=== PATIENT | male | born 1970 | race Two or more races ===

== ENCOUNTER 2020-04-15 20:55 | Emergency (ER) | payer SELFPAY ==
[~2020-04-15] VITALS: Ht 175.3 cm; Wt 90.7 kg
[2020-04-15 21:06] VITALS: BP 123/65
--- NOTE | 2020-04-15 21:54 | Diagnostic Imaging Report ---
EXAM: XR Chest, 1 View CLINICAL HISTORY: ALOC TECHNIQUE: Frontal view of the chest. COMPARISON: No relevant prior studies available. FINDINGS: Lungs: Mild left basilar atelectasis. Mildly elevated left hemidiaphragm. No consolidation or interstitial edema. Pleural space: No pleural effusion. No pneumothorax. Heart: Unremarkable. No cardiomegaly. Bones/joints: Unremarkable. IMPRESSION: No acute findings in the chest.
--- NOTE | 2020-04-15 21:57 | Emergency Room Report ---
History of Present Illness General Chief Complaint: Alcohol Intoxication Source: Patient, EMS (Michael Maldonado MD) Present Illness HPI Patient brought by EMS. Friends were drinking with him and he told him that he was not feeling well. Paramedics arrived and he was ambulatory and speaking with the locks tender but then he stopped speaking to paramedics. Blood glucose was normal. There was no observed seizure activity. Initially patient not answering questions. Patient has a history of seizures. He takes Keppra 1000 mg twice a day. He denies having any seizures today. (Michael Maldonado MD) Allergies: Coded Allergies: UNABLE TO ASSESS (Unverified , 04/15/20) COVID-19 Screening Contact w/high risk pt: No Experienced COVID-19 symptoms?: No COVID-19 Testing performed CARTRIDGE LOADER: No (Michael Maldonado MD) Patient History Limited by: medical condition Past Medical History: see triage record, other - Umbilical hernia Social History: Reports: alcohol use; Denies: smoking Social History Narrative Was with friends Reviewed Nursing Documentation: PMH: Agreed; PSxH: Agreed (Michael Maldonado MD) Nursing Documentation-PMH Past Medical History: No History, Except For Hx Seizures: Yes - seizures (Michael Maldonado MD) Review of Systems All Other Systems: limited (Michael Maldonado MD) Physical Exam Vital Signs Date Time Temp Pulse Resp B/P (MAP) Pulse Ox O2 Delivery O2 Flow Rate FiO2 04/15/20 20:48 97.9 110 18 135/70 (91) 98 Room Air Sp02 EP Interpretation: reviewed, normal General Appearance: no apparent distress, lethargic Head: normocephalic, atraumatic Eyes: bilateral eye PERRL, bilateral eye EOMI, bilateral eye Scleral Injection ENT: moist mucus membranes - Lingual trauma Neck: full range of motion, supple, no bony tend Respiratory: chest non-tender, lungs clear, normal breath sounds Cardiovascular #1: regular rate, rhythm, edema - Trace bilaterally Cardiovascular #2: 2+ radial (L) Gastrointestinal: non tender, hernia - Umbilical, overweight Genitourinary: no CVA tenderness Musculoskeletal: back normal, normal range of motion, no calf tenderness Neurologic: motor strength/tone normal, oriented - X2, DTRs symmetric, sensory intact, responsive, other - Slurred speech Psychiatric: depressed affect Skin: warm/dry, other - Venous disease (Michael Maldonado MD) Medical Decision Making Homeless Attestation Patient has been medically screened and is stable for outpatient follow up (Noel Kaye MD) Diagnostic Impression: Primary Impression: Acute alcoholic intoxication Qualified Codes: F10.929 - Alcohol use, unspecified with intoxication, unspecified Additional Impressions: History of seizures Elevated bilirubin Thrombocytopenia ER Course Patient presents with altered mentation after ingestion of alcohol. There was no observed seizure activity. Differential includes alcohol intoxication, electrolyte imbalance, occult seizure, other ingestions amongst others. Evaluation with EKG, chest x-ray and labs. Based on her neurologic exam CT is not indicated at this time. Patient is treated with IV hydration and observation. Patient abusive to RN and initially refuses treatment. Told he could not be abusive and had to decide whether he wants treatment or not. Discussed risk of leaving and with patient who understands. He is ambulatory to the bathroom. 2129 Patient states that he stopped answering paramedics when they try to assess him with a sternal rub. He was upset and refused to answer. He denies head trauma. He states he has 3 types of seizures. Patient allowing us to continue with treatment. EKG sinus tachycardia 101 with no acute changes. Chest x-ray with increased greene but no definite infiltrates. Patient signed out to Dr. Kaye to review labs and repeat patient evaluation. (Michael Maldonado MD) ER Course Assumed care of the patient from previous provider approximately 2300 hrs. pending blood work Briefly, this a 49-year-old male with a history of seizure disorder and alcohol abuse presenting for seizure after alcohol intoxication today. Patient was initially combative and refused blood work however he then consented. Blood work is returned largely within normal limits but does show thrombocytopenia, AST elevation and bilirubin elevation consistent with the patient's alcohol abuse history. Patient declined to give urine. No further seizures in the ED. He is ambulating with a steady gait. Patient is stable for outpatient follow- up though I did tell him that he is not to drive or operate any heavy machinery participate in any dangerous activities that could result in injury to self or others should he experience another seizure. He is to refrain from these activities until his seizure disorder is under control. I will refill his Keppra as well as prescribed thiamine and folate. He is to follow-up with PMD for retesting of his platelets, liver function studies and bilirubin. Copies of his labs were provided in his discharge packet. I referred him to outpatient counseling and services regarding his alcohol use. We discussed reasons to return to the ER. He understands and agrees with the treatment plan. Laboratory Tests Test 04/15/20 21:56 White Blood Count 7.9 K/UL (4.8-10.8) Red Blood Count 3.84 M/UL (4.70-6.10) L Hemoglobin 12.1 G/DL (14.2-18.0) L Hematocrit 37.0 % (42.0-52.0) L Mean Corpuscular Volume 96 FL (80-99) Mean Corpuscular Hemoglobin 31.5 PG (27.0-31.0) H Mean Corpuscular Hemoglobin Concent 32.6 G/DL (32.0-36.0) Red Cell Distribution Width 17.1 % (11.6-14.8) H Platelet Count 66 K/UL (150-450) L Mean Platelet Volume 10.4 FL (6.5-10.1) H Neutrophils (%) (Auto) % (45.0-75.0) Lymphocytes (%) (Auto) % (20.0-45.0) Monocytes (%) (Auto) % (1.0-10.0) Eosinophils (%) (Auto) % (0.0-3.0) Basophils (%) (Auto) % (0.0-2.0) Differential Total Cells Counted 100 Neutrophils % (Manual) 42 % (45-75) L Lymphocytes % (Manual) 45 % (20-45) Monocytes % (Manual) 5 % (1-10) Eosinophils % (Manual) 8 % (0-3) H Platelet Estimate Pending Platelet Morphology Pending Sodium Level 140 MMOL/L (136-145) Potassium Level 3.7 MMOL/L (3.5-5.1) Chloride Level 107 MMOL/L (98-107) Carbon Dioxide Level 24 MMOL/L (21-32) Anion Gap 9 mmol/L (5-15) Blood Urea Nitrogen 5 mg/dL (7-18) L Creatinine 1.1 MG/DL (0.55-1.30) Estimated Glomerular Filtration Rate > 60 mL/min (>60) Glucose Level 113 MG/DL (74-106) H Calcium Level 7.4 MG/DL (8.5-10.1) L Total Bilirubin 2.1 MG/DL (0.2-1.0) H Direct Bilirubin 1.1 MG/DL (0.0-0.3) H Aspartate Amino Transferase (AST) 87 U/L (15-37) H Alanine Aminotransferase (ALT) 62 U/L (12-78) Alkaline Phosphatase 305 U/L (46-116) H Total Creatine Kinase 222 U/L (26-308) Troponin I 0.012 ng/mL (0.000-0.056) Total Protein 7.4 G/DL (6.4-8.2) Albumin 2.6 G/DL (3.4-5.0) L Globulin 4.8 g/dL Albumin/Globulin Ratio 0.5 (1.0-2.7) L Thyroid Stimulating Hormone (TSH) 2.095 uiU/mL (0.358-3.740) Salicylates Level < 0.2 ug/mL (2.8-20) L Acetaminophen Level < 2 MCG/ML (10-30) L Serum Alcohol 264 mg/dL (Noel Kaye MD) EKG Diagnostic Results Rate: tachycardiac Rhythm: NSR ST Segments: no acute changes (Michael Maldonado MD) Rhythm Strip Diag. Results EP Interpretation: yes Rhythm: no PVC's, no ectopy, other - Sinus tachycardia 101 (Michael Maldonado MD) Chest X-Ray Diagnostic Results Chest X-Ray Diagnostic Results : Chest X-Ray Ordered: Yes # of Views/Limited/Complete: 1 View Indication: Other EP Interpretation: Yes Interpretation: no consolidation, no effusion, no pneumothorax, other - Greene bilaterally Impression: Other Electronically Signed by: Electronically signed by Michael Maldonado MD (Michael Maldonado MD) Last Vital Signs Date Time Temp Pulse Resp B/P (MAP) Pulse Ox O2 Delivery O2 Flow Rate FiO2 04/15/20 23:56 98.6 85 18 122/82 96 Room Air Status: improved (Michael Maldonado MD) Disposition: HOME, SELF-CARE Condition: Stable Scripts Folic Acid* (FOLIC ACID*) 1 Mg Tablet 1 MG ORAL DAILY for 30 Days, #30 TAB Prov: Noel Kaye MD 04/15/20 Thiamine Hcl* (VITAMIN B-1*) 100 Mg Tablet 100 MG ORAL DAILY, #30 TAB 0 Refills Prov: Noel Kaye MD 04/15/20 Levetiracetam (KEPPRA) 1,000 Mg Tablet 1000 MG ORAL BID for 30 Days, #60 TAB 0 Refills Prov: Noel Kaye MD 04/15/20 Referrals: NOT CHOSEN IPA/,REFERRING (PCP) Michael Maldonado MD Apr 15, 2020 21:57 Noel Kaye MD Apr 15, 2020 23:35
[2020-04-15 22:52] LABS: ANION GAP 9 mmol/L (5-15); BLOOD UREA NITROGEN 5 mg/dL (7-18); CALCIUM 7.4 MG/DL (8.5-10.1); CARBON DIOXIDE 24 MMOL/L (21-32); CHLORIDE 107 MMOL/L (98-107); CREATININE 1.1 MG/DL (0.55-1.30); POTASSIUM 3.7 MMOL/L (3.5-5.1); SODIUM 140 MMOL/L (136-145)
[2020-04-15 22:53] LABS: HEMOGLOBIN 12.1 G/DL (14.2-18.0); MEAN CORPUSCULAR VOLUME 96 FL (80-99); PLATELET COUNT 66 K/UL (150-450); RED BLOOD COUNT 3.84 M/UL (4.70-6.10); RED CELL DISTRIBUTION WIDTH 17.1 % (11.6-14.8); WHITE BLOOD COUNT 7.9 K/UL (4.8-10.8)
[2020-04-15 23:10] LABS: ALANINE AMINOTRANSFERASE 62 U/L (12-78); ALBUMIN 2.6 G/DL (3.4-5.0); ALBUMIN/GLOBULIN RATIO 0.5 (1.0-2.7); ALKALINE PHOSPHATASE 305 U/L (46-116); ASPARTATE AMINO TRANSFERASE 87 U/L (15-37); BILIRUBIN,TOTAL 2.1 MG/DL (0.2-1.0); CREATINE KINASE 222 U/L (26-308)
[2020-04-15 23:11] LABS: BILIRUBIN,DIRECT 1.1 MG/DL (0.0-0.3)
[2020-04-15] MEDS ORDERED: FOLIC ACID1 MG ORAL (23:24)
[2020-04-15] MEDS ORDERED: VITAMIN B-1100 MG ORAL (23:24)
[2020-04-15] MEDS ORDERED: KEPPRA1000 MG ORAL (23:24)
[2020-04-15 23:56] VITALS: BP 122/82
== END 2020-04-15 23:56 | disposition home or self-care (01) ==
LOC: EDBD 20:55 → EMR 21:25
DX: F10.129 Alcohol abuse with intoxication, unspecified (principal); G40.909 Epilepsy, unspecified, not intractable, without status epilepticus; R79.89 Other specified abnormal findings of blood chemistry; D69.6 Thrombocytopenia, unspecified; E66.3 Overweight; Z68.29 Body mass index [BMI] 29.0-29.9, adult; R00.1 Bradycardia, unspecified
CPT/HCPCS: 36415; 71045; 80053; 82248; 82550; 84443; 84484; 85007; 85025; 93005; 96360; 96361; 99284; G0480